=== PATIENT | male | born 1980 | race Caucasian/White ===

== ENCOUNTER 2018-12-05 12:25 | Emergency (ER) | payer MEDICAID ==
--- NOTE | 2018-12-05 12:56 | EDM.PDOC ---
ED HPI GENERAL MEDICAL PROBLEM - General Chief Complaint: Lower Extremity Injury/Pain Stated Complaint: INJURY R LEG/FOOT Time Seen by Provider: 12/05/18 12:54 Source of Information: Reports: Patient, Old Records, RN, RN Notes Reviewed History Limitations: Reports: No Limitations - History of Present Illness INITIAL COMMENTS - FREE TEXT/NARRATIVE: Pt presents to ER from home by POV with c/o Rt lower leg, ankle, and foot pain sustained yesterday when he jumped off of his 4-galindo. Denies any other injury. Pt states he went to [facility] but they told him that they cannot care of leg injuries. Onset: Sudden Onset Date: 12/04/18 Duration: Constant Location: Reports: Lower Extremity, Right Quality: Reports: Ache Severity: Moderate Improves with: Reports: Immobilization Worsens with: Reports: Movement Associated Symptoms: Reports: No Other Symptoms - Related Data Allergies Allergy/AdvReac Type Severity Reaction Status Date / Time No Known Allergies Allergy Verified 12/05/18 12:45 Home Meds: Home Meds Sertraline HCl 100 mg PO DAILY 01/27/18 [History] Past Medical History HEENT History: Reports: Impaired Vision Respiratory History: Reports: None Gastrointestinal History: Reports: None Genitourinary History: Reports: BPH Musculoskeletal History: Reports: Other (See Below) Other Musculoskeletal History: bilateral hips Neurological History: Reports: None Psychiatric History: Reports: Addiction Hematologic History: Reports: None Immunologic History: Reports: None Oncologic (Cancer) History: Reports: None Dermatologic History: Reports: None - Past Surgical History Musculoskeletal Surgical History: Reports: Hip Replacement Social & Family History - Family History Family Medical History: Noncontributory - Caffeine Use Caffeine Use: Reports: Coffee, Energy Drinks, Soda, Tea - Living Situation & Occupation Living situation: Reports: with Family Review of Systems - Review of Systems Review Of Systems: ROS reveals no pertinent complaints other than HPI. ED EXAM, GENERAL - Physical Exam Exam: See Below Exam Limited By: No Limitations General Appearance: Alert, WD/WN, No Apparent Distress Nose: Normal Inspection Throat/Mouth: Normal Voice Head: Atraumatic, Normocephalic Neck: Normal Inspection Respiratory/Chest: No Respiratory Distress Cardiovascular: Normal Peripheral Pulses Extremities: No Pedal Edema, Normal Capillary Refill, Limited Range of Motion ( Rt ankle ), Other (Rt lateral foot pain and swelling with bruise, skin is intact ). No: Increased Warmth, Mottled, Pallor, Redness Neurological: Alert, Oriented, No Motor/Sensory Deficits Psychiatric: Normal Mood Skin Exam: Warm, Dry, Intact, Normal Color, No Rash Course - Vital Signs Last Recorded V/S: Last Vital Signs Temp 96.8 F 12/05/18 12:40 Pulse 101 H 12/05/18 12:40 Resp 18 12/05/18 12:40 BP 94/64 12/05/18 12:40 Pulse Ox 98 12/05/18 12:40 - Radiology Interpretation Free Text/Narrative:: XR Rt Foot/Ankle: no acute fractures, see Rad, report. Departure - Departure Time of Disposition: 14:00 Disposition: Home, Self-Care 01 Condition: Good Clinical Impression: Right foot sprain Qualifiers: Encounter type: initial encounter Qualified Code(s): S93.601A - Unspecified sprain of right foot, initial encounter - Discharge Information *PRESCRIPTION DRUG MONITORING PROGRAM REVIEWED*: No *COPY OF PRESCRIPTION DRUG MONITORING REPORT IN PATIENT SHELDON: No Instructions: Crutch Use, Adult, [id number], Foot Sprain Forms: ED Department Discharge Additional Instructions: Rx: Naprosyn 500mg Rx: Tylenol No. 3 Use splint boot and crutches as needed for comfort for 7 to 10 days. Rest, ice pack, and elevate right foot to reduce pain and swelling. Follow up in clinic if not improving as expected in 2 weeks.
--- NOTE | 2018-12-05 13:14 | CR ---
EXAMINATION: Foot Comp Min 3V Rt SEX: Male AGE: 38 years CLINICAL HISTORY: 38-year-old male right Foot/ankle/distal leg injury, jumped off 4 galindo INTERPRETATION: 1. Soft tissue swelling dorsolaterally. 2. 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 3. No sign of right foot fracture or dislocation. No heel spurs. 4. No foreign bodies. CONCLUSION: Right Ankle/foot sprain. No fractures.
--- NOTE | 2018-12-05 13:55 | CR ---
EXAMINATION: Ankle Min 3V Rt SEX: Male AGE: 38 years CLINICAL HISTORY: 38-year-old male who experienced Foot/ankle/distal leg injury (jumped off 4 galindo). INTERPRETATION: Three views right ankle. 1. Asymmetric soft tissue swelling particularly lateral right ankle. 2. No sign of underlying fracture or disruption of the tibiotalar mortise joint symmetry. 3. Base of the fifth metatarsal unremarkable. No mid or hindfoot fractures. 4. No foreign bodies. CONCLUSION: Right ankle sprain. No fractures.
== END 2018-12-05 14:15 | disposition home or self-care (01) ==
LOC: DL.ED 12:25
DX: S93.601A Unspecified sprain of right foot, initial encounter (principal); Z79.899 Other long term (current) drug therapy; V48.4XXA Person boarding or alighting a car injured in noncollision transport accident, initial encounter
CPT/HCPCS: 73610-RT; 73630-RT; 99283-25